=== PATIENT | male | born 1950 | race Caucasian/White ===

== ENCOUNTER 2018-06-27 12:12 | Inpatient (IN) | payer OTHER ==
[~2018-06-27] VITALS: Ht 172.7 cm; Wt 99.0 kg
--- NOTE | 2018-06-27 12:15 | NUR ---
REGISTRATION CALLED TO ALERT CHEST PAIN. STAT EKG CALLED TO TRIAGE.
--- NOTE | 2018-06-27 12:29 | NUR ---
PT TO ROOM FROM TRIAGE, DR GRIFFITH AT BEDSIDE TO EVAL PT. 68 YR OLD MALE HERE WITH C/O "CHEST PAIN" THAT BEGAN AROUND 1000. PT PLACED ON MONITORS
--- NOTE | 2018-06-27 12:31 | NUR ---
CODE CARDIAC CALLED AT THIS TIME.
--- NOTE | 2018-06-27 12:35 | NUR ---
DR SHAHID AT BEDSIDE TO EVAL PT
[2018-06-27] MEDS ORDERED: ASPIRIN 325 MG TABLET PO STA (12:39)
[2018-06-27] MEDS ORDERED: ATROPINE SYRINGE 0.1 MG/ML, 10ML ONE (12:40)
--- NOTE | 2018-06-27 12:40 | NUR ---
PT WITH DECREASED BP 93/59. PER DR SHAHID, PT TO RECEIVE 500MLS BOLUS. INFUSING IN RAC IV.
--- NOTE | 2018-06-27 12:44 | NUR ---
BP 88/51, DOPAMINE GTT TO BE STARTED AT 5MCG PER DR SHAHID.
[2018-06-27] MEDS ORDERED: DOPAMINE/D5W PMX 250 ML IV PRN (12:46)
--- NOTE | 2018-06-27 12:49 | NUR ---
PT WITH DIAPHORESIS, "NOT DOING GOOD, REALLY UNCOMFORTABLE" PT CONT TO RECEIVE NS BOLUS, DOPAMINE STARTED AT 5MCG/KG/MIN
[2018-06-27 12:56] LABS: BASOPHILS # (AUTO) 0.03 x10^3/uL (0-0.1); BASOPHILS % (AUTO) 0 % (0-1); EOSINOPHILS # (AUTO) 0.06 x10^3/uL (0-0.4); EOSINOPHILS % (AUTO) 1 % (1-7); LYMPHOCYTES # (AUTO) 0.41 x10^3/uL (1-3.4); LYMPHOCYTES % (AUTO) 3 % (22-44); MD NO; MEAN CORPUSCULAR HEMOGLOBIN 31.5 pg (27.5-34.5); MEAN CORPUSCULAR HGB CONC 33.5 g/dL (33.2-36.2); MEAN CORPUSCULAR VOLUME 94.1 fL (81-97); MEAN PLATELET VOLUME 8.1 fL (7.4-10.4); MONOCYTES # (AUTO) 0.62 x10^3/uL (0.2-0.8); MONOCYTES % (AUTO) 5 % (2-9); NEUTROPHILS # (AUTO) 11.82 x10^3/uL (1.8-6.8); NEUTROPHILS % (AUTO) 91 % (42-75); PLATELET COUNT 203 x10^3/uL (130-400); RED BLOOD COUNT 5.79 x10^6/uL (4.38-5.82); RED CELL DISTRIBUTION WIDTH 13.6 % (9.4-14.8)
[2018-06-27] MEDS ORDERED: METO50TA82 PO (12:57)
[2018-06-27] MEDS ORDERED: LISI-170 PO (12:57)
[2018-06-27] MEDS ORDERED: PRAV40TA2 PO (12:57)
[2018-06-27] MEDS ORDERED: ASPI-496 PO (12:57)
[2018-06-27] MEDS ORDERED: MORPHINE SULFATE 4 MG/ML, 1ML ONE (12:59)
[2018-06-27] MEDS ORDERED: ONDANSETRON 2MG/ML, 2ML ONE (12:59)
[2018-06-27] MEDS ORDERED: MORPHINE SULFATE 4 MG/ML, 1ML IVPush PRN (13:00)
[2018-06-27] MEDS ORDERED: NITROGLYCERIN 0.4 MG/SPRAY SL PRN (13:00)
[2018-06-27] MEDS ORDERED: ONDANSETRON 2MG/ML, 2ML IVPush ONE (13:00)
[2018-06-27] MEDS ORDERED: HEPARIN 1,000 UNITS/ML, 10ML ONE (13:00)
[2018-06-27] MEDS ORDERED: BIVALIRUDIN 250 MG ONE (13:00)
[2018-06-27] MEDS ORDERED: SODIUM CHLORIDE 0.9% 1,000 ML IV SCH (13:00)
[2018-06-27] MEDS ORDERED: ACETAMINOPHEN 325 MG TABLET PO PRN (13:00)
[2018-06-27] MEDS ORDERED: VERAPAMIL 2.5 MG/ML, 2ML ONE (13:00)
[2018-06-27] MEDS ORDERED: ZOLPIDEM 5MG TABLET PO PRN (13:00)
[2018-06-27] MEDS ORDERED: MIDAZOLAM 1 MG/ML, 5ML ONE (13:00)
[2018-06-27] MEDS ORDERED: ASPIRIN 325 MG TABLET EC PO ONE (13:00)
[2018-06-27] MEDS ORDERED: BISACODYL 10 MG SUPP PR PRN (13:00)
[2018-06-27] MEDS ORDERED: NITROGLYCERIN 5 MG/ML, 10ML ONE (13:00)
[2018-06-27] MEDS ORDERED: LIDOCAINE 2%, 20ML ONE (13:00)
[2018-06-27] MEDS ORDERED: FENTANYL PF 100 MCG/2ML ONE (13:00)
[2018-06-27] MEDS ORDERED: NITROGLYCERIN 0.4 MG BOTTLE (25 TABS) SL PRN (13:00)
[2018-06-27] MEDS ORDERED: TICAGRELOR 90 MG TABLET ONE (13:00)
[2018-06-27] MEDS ORDERED: DOPAMINE/D5W PMX 250 ML ONE (13:02)
--- NOTE | 2018-06-27 13:05 | NUR ---
PT MEDICATED FOR 09/16 CHEST "PRESSURE" ORDERED. PTS SADIA AT BEDSIDE. Addendum: 06/27/18 at 1324 by WALLACE 500 ML NS BOLUS COMPLETED.
[2018-06-27 13:06] LABS: INTERNATIONAL NORMALIZED RATIO 1.02 (0.93-1.1); PROTHROMBIN TIME 10.7 Seconds (9.6-11.5)
[2018-06-27 13:10] LABS: TROPONIN I < 0.015 ng/mL (0.000-0.045)
--- NOTE | 2018-06-27 13:10 | NUR ---
PT TO DIRECTOR SURFACE TRANSPORTATION VIA JAROD
--- NOTE | 2018-06-27 13:13 | NUR ---
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
[2018-06-27] MEDS ORDERED: ENALAPRILAT 1.25 MG/ML, 2ML IV PRN (15:30)
[2018-06-27] MEDS ORDERED: hydrALAzine 20 MG/ML, 1ML IV PRN (15:30)
[2018-06-27] MEDS: METOPROLOL TARTRATE 50 MG TABLET PO SCH (15:42)
[2018-06-27] MEDS: LISINOPRIL 20 MG TABLET PO SCH (15:42)
[2018-06-27 16:41] LABS: TROPONIN I 0.819 ng/mL (0.000-0.045)
[2018-06-27] MEDS ORDERED: DOPAMINE/D5W PMX 400 MG/250 ML ONE (17:13)
[2018-06-27 20:00] VITALS: BP 116/81
[2018-06-27] MEDS: ATORVASTATIN 80 MG TABLET PO SCH (20:59)
[2018-06-27] MEDS: ENOXAPARIN 40 MG/0.4 ML SQ SCH (21:01)
[2018-06-27] MEDS ORDERED: METOPROLOL TARTRATE 25 MG TABLET PO SCH (21:30)
[2018-06-27] MEDS: METOPROLOL TARTRATE 25 MG TABLET PO SCH ×2 (22:07→22:30)
[2018-06-28 04:17] LABS: BASOPHILS # (AUTO) 0.01 x10^3/uL (0-0.1); BASOPHILS % (AUTO) 0 % (0-1); EOSINOPHILS # (AUTO) 0.07 x10^3/uL (0-0.4); EOSINOPHILS % (AUTO) 1 % (1-7); LYMPHOCYTES # (AUTO) 1.21 x10^3/uL (1-3.4); LYMPHOCYTES % (AUTO) 12 % (22-44); MD NO; MEAN CORPUSCULAR HEMOGLOBIN 31.3 pg (27.5-34.5); MEAN CORPUSCULAR HGB CONC 33.5 g/dL (33.2-36.2); MEAN CORPUSCULAR VOLUME 93.3 fL (81-97); MEAN PLATELET VOLUME 7.9 fL (7.4-10.4); MONOCYTES # (AUTO) 0.69 x10^3/uL (0.2-0.8); MONOCYTES % (AUTO) 7 % (2-9); NEUTROPHILS % (AUTO) 80 % (42-75); PLATELET COUNT 192 x10^3/uL (130-400); RED BLOOD COUNT 4.97 x10^6/uL (4.38-5.82); RED CELL DISTRIBUTION WIDTH 13.8 % (9.4-14.8)
[2018-06-28 04:28] LABS: CHLORIDE 113 mmol/L (98-107)
[2018-06-28 04:43] LABS: HEMOGLOBIN A1C 5.5 % (4.2-6.3)
[2018-06-28 04:49] LABS: ANION GAP 6 mmol/L (5-15); CALCIUM 8.1 mg/dL (8.5-10.1); CHOL/HDL RATIO 2.5; CHOLESTEROL, TOTAL 131 mg/dL (140-239); CREATININE 0.81 mg/dL (0.7-1.3); HDL CHOL % 40 % (26-37); HDL CHOLESTEROL (DIRECT) 53 mg/dL (40-60); LDL CHOLESTEROL,CALCULATED 62 mg/dL (54-169); LDL/HDL RATIO 1.2 (0.5-3.0); TRIGLYCERIDES 80 mg/dL (50-200); VLDL CHOLESTEROL 16 mg/dL (0-25)
[2018-06-28] MEDS: METOPROLOL TARTRATE 50 MG TABLET PO SCH (06:30)
[2018-06-28] MEDS: ASPIRIN 81 MG TABLET EC PO SCH (10:10)
[2018-06-28] MEDS: LISINOPRIL 20 MG TABLET PO SCH (10:10)
[2018-06-28] MEDS: TICAGRELOR 90 MG TABLET PO SCH ×2 (10:11→20:44)
[2018-06-28 14:30] VITALS: BP 126/80
[2018-06-28 20:05] VITALS: BP 130/83
[2018-06-28] MEDS: ATORVASTATIN 80 MG TABLET PO SCH (20:45)
[2018-06-28] MEDS: ENOXAPARIN 40 MG/0.4 ML SQ SCH (20:45)
[2018-06-29 03:42] VITALS: BP 115/75
[2018-06-29 05:50] VITALS: BP 148/70
[2018-06-29] MEDS ORDERED: METOPROLOL TARTRATE 50 MG TABLET PO SCH (06:00)
[2018-06-29 07:05] VITALS: BP 122/78
[2018-06-29] MEDS: LISINOPRIL 20 MG TABLET PO SCH (09:51)
[2018-06-29] MEDS: TICAGRELOR 90 MG TABLET PO SCH (09:52)
[2018-06-29] MEDS: ASPIRIN 81 MG TABLET EC PO SCH (09:52)
[2018-06-29] MEDS ORDERED: TICA90TA PO (10:11)
== END 2018-06-29 11:44 | disposition home or self-care (01) | DRG 246 ==
LOC: ED 12:46 → EDIP 12:47 → ED 12:52 → CCU 14:08 → 5SO 06-28 14:25 → DCLOUNGE 06-29 11:30
PROVIDERS: ADMIT Internal Medicine Cardiovascular Disease; ATTEND Internal Medicine Cardiovascular Disease
PROC: 027034Z Dilation of Coronary Artery, One Artery with Drug-eluting Intraluminal Device, Percutaneous Approach (ICD-10-PCS; principal; 2018-06-27)
PROC: 4A023N7 Measurement of Cardiac Sampling and Pressure, Left Heart, Percutaneous Approach (ICD-10-PCS; 2018-06-27)
PROC: B2111ZZ Fluoroscopy of Multiple Coronary Arteries using Low Osmolar Contrast (ICD-10-PCS; 2018-06-27)
PROC: B2151ZZ Fluoroscopy of Left Heart using Low Osmolar Contrast (ICD-10-PCS; 2018-06-27)
DX: T82.855A Stenosis of coronary artery stent, initial encounter (principal); I21.19 ST elevation (STEMI) myocardial infarction involving other coronary artery of inferior wall; R00.1 Bradycardia, unspecified; I95.9 Hypotension, unspecified; I25.10 Atherosclerotic heart disease of native coronary artery without angina pectoris; I10 Essential (primary) hypertension; E78.5 Hyperlipidemia, unspecified; D75.1 Secondary polycythemia; Y84.8 Other medical procedures as the cause of abnormal reaction of the patient, or of later complication, without mention of misadventure at the time of the procedure; Z87.891 Personal history of nicotine dependence; I25.2 Old myocardial infarction; Y92.89 Other specified places as the place of occurrence of the external cause
CPT/HCPCS: 36415; 93458; J3490; 71045; 80047; 80048; 80061; 83036; 83735; 84484; 85025; 85610; 85730; 87081; 93005; 93306; 96374; 96375; 99156; 99157; 99291; C1760; C1769; C1894; G0378; J0583; J1265; J1644; J1650; J2250; J2405; J3010; C1725; C1874; C1887; J0360; Q9967